=== PATIENT | female | born 1995 | race Native Hawaiian/Other Pacific Islander ===

== ENCOUNTER 2020-09-21 07:31 | Outpatient (CLI) | payer BC ==
[2020-09-21 08:14] LABS: PLATELET COUNT 251 K/uL (152-353)
[2020-09-21 08:56] LABS: POTASSIUM 4.1 mmol/L (3.6-5.2)
== END 2020-09-21 23:12 | disposition home or self-care (01) ==
LOC: LABW 07:31 → US 10:00 → LABW 23:12
PROVIDERS: ATTEND Internal Medicine
DX: R10.11 Right upper quadrant pain (principal)
CPT/HCPCS: 36415; 80053; 81000; 81025; 82150; 83690; 85027

== ENCOUNTER 2020-10-04 13:45 | Outpatient (CLI) | payer BC | END 2020-10-04 20:32 | disposition home or self-care (01) | LOC: LAB 13:45 | PROVIDERS: ATTEND Internal Medicine | DX: J02.9 Acute pharyngitis, unspecified (principal) | CPT/HCPCS: 87081 ==

== ENCOUNTER 2021-04-25 12:37 | Outpatient (CLI) | payer BC | END 2021-04-25 20:22 | disposition home or self-care (01) | LOC: RESP 12:37 | PROVIDERS: ATTEND Nurse Practitioner Family | DX: R42 Dizziness and giddiness (principal); R53.83 Other fatigue; Z82.49 Family history of ischemic heart disease and other diseases of the circulatory system ==

== ENCOUNTER 2022-10-11 10:17 | Outpatient (CLI) | payer OTHER | END 2022-10-11 18:59 | disposition home or self-care (01) | LOC: RESP 10:17 → LABW 10:17 → RESP 18:59 | PROVIDERS: ATTEND Nurse Practitioner Family | DX: R00.2 Palpitations (principal) | CPT/HCPCS: 93005; 93225 ==